=== PATIENT | male | born 1980 | race Caucasian/White ===

== ENCOUNTER 2017-01-10 12:47 | Emergency (ER) | payer SELFPAY ==
[~2017-01-10] VITALS: Ht 180.3 cm; Wt 107.5 kg
[2017-01-10 12:55] VITALS: BP 177/124
== END 2017-01-10 15:23 | disposition home or self-care (01) ==
LOC: ER 12:54
DX: G89.29 Other chronic pain (principal); M25.571 Pain in right ankle and joints of right foot; F17.210 Nicotine dependence, cigarettes, uncomplicated
CPT/HCPCS: 73610

== ENCOUNTER 2021-06-06 08:16 | Emergency (ER) | payer MEDICAID, OTHER ==
[~2021-06-06] VITALS: Ht 177.8 cm; Wt 94.8 kg
[2021-06-06 09:37] LABS: Basophils # (auto) 0.1 10 ^3/uL (0-0.2); Basophils % (auto) 1.2 % (0.0-2.0); Eosinophils # (auto) 0.5 10 ^3/uL (0-0.8); Eosinophils % (auto) 4.8 % (0.0-7.0); Hematocrit 46.2 % (41.0-53.0); Hemoglobin 16.2 g/dL (13.5-17.5); Lymphocytes # (auto) 2.9 10 ^3/uL (0.4-5.4); Lymphocytes % (auto) 29.9 % (10.0-50.0); Mean Corpuscular Hemoglobin 30.9 pg (28.0-32.0); Mean Corpuscular Hgb Conc. 35.1 g/dL (32.0-36.0); Monocytes # (auto) 0.7 10 ^3/uL (0-1.3); Monocytes % (auto) 7.5 % (0.0-12.0); Neutrophils # (auto) 5.4 10 ^3/uL (1.6-8.6); Neutrophils % (auto) 56.6 % (37.0-80.0); Nucleated Red Blood Cells % 0.1 %; Red Blood Cells 5.25 10^6/uL (4.5-5.90); White Blood Cell 9.6 10^3/uL (4.4-10.8)
[2021-06-06 11:05] LABS: Potassium 4.6 mmol/L (3.5-5.1)
[2021-06-06 11:12] LABS: Albumin 3.9 g/dL (3.4-5.0); BUN/Creatinine Ratio 11.2; Bilirubin, Total 0.5 mg/dL (0.2-1.0); Calcium 9.2 mg/dL (8.5-10.1); Total Protein 7.3 g/dL (6.4-8.2)
[2021-06-06 15:11] VITALS: BP 142/99
== END 2021-06-06 15:13 | disposition home or self-care (01) ==
LOC: ER 08:16
DX: F41.8 Other specified anxiety disorders (principal); R07.89 Other chest pain; I10 Essential (primary) hypertension; E11.9 Type 2 diabetes mellitus without complications; F17.210 Nicotine dependence, cigarettes, uncomplicated; Z20.822 Contact with and (suspected) exposure to COVID-19
CPT/HCPCS: 36415; 71045; 80053; 84484; 85025; 87426; 93005

== ENCOUNTER 2023-07-19 11:05 | Inpatient (IN) | payer MEDICAID ==
[~2023-07-19] VITALS: Ht 182.9 cm; Wt 95.6 kg
[2023-07-19 11:31] LABS: Basophils # (auto) 0 10 ^3/uL (0-0.2); Basophils % (auto) 0.5 % (0.0-2.0); Eosinophils # (auto) 0.7 10 ^3/uL (0-0.8); Eosinophils % (auto) 7.2 % (0.0-7.0); Hematocrit 50.7 % (41.0-53.0); Hemoglobin 17.2 g/dL (13.5-17.5); Lymphocytes % (auto) 32.1 % (10.0-50.0); Mean Corpuscular Hgb Conc. 33.8 g/dL (32.0-36.0); Mean Corpuscular Volume 88.6 fL (80.0-100.0); Monocytes # (auto) 0.5 10 ^3/uL (0-1.3); Monocytes % (auto) 4.9 % (0.0-12.0); Neutrophils # (auto) 5.2 10 ^3/uL (1.6-8.6); Neutrophils % (auto) 55.3 % (37.0-80.0); Nucleated Red Blood Cells % 0.1 %; Red Blood Cells 5.73 10^6/uL (4.5-5.90); Red Cell Distribution Width 13.5 % (11.8-14.3); White Blood Cell 9.3 10^3/uL (4.4-10.8)
[2023-07-19 11:49] LABS: Alanine Aminotransferase 32 U/L (7-40); Albumin 4.6 g/dL (3.2-4.8); Alkaline Phosphatase 119 U/L (46-116); Anion Gap 8 (5-15); Aspartate Aminotransferase 25 U/L (13-40); Bilirubin, Direct 0.2 mg/dL (<0.3); Bilirubin, Total 0.7 mg/dL (0.2-1.0); Calcium 9.6 mg/dL (8.5-10.1); Carbon Dioxide 28 mmol/L (20-30); Chloride 103 mmol/L (98-107); Glucose 287 mg/dL (74-106); Potassium 4.1 mmol/L (3.5-5.1); Sodium 139 mmol/L (136-145); Total Protein 6.9 g/dL (5.7-8.2)
[2023-07-19 11:54] LABS: BUN/Creatinine Ratio 5.3 (10.0-20.0); Blood Urea Nitrogen < 5 mg/dL (9-23)
[2023-07-19 12:06] LABS: Lipase 32 U/L (12-53)
[2023-07-19] MEDS: ASPirin-EC 325mg tab PO ONE (13:18)
[2023-07-19] MEDS ORDERED: ACETAMINOPHEN 325 MG TAB PO PRN (14:15)
[2023-07-19] MEDS: METOPROLOL TARTRATE 25 MG TAB PO SCH (14:15)
[2023-07-19] MEDS ORDERED: HYDROcodone-ACET 5/325MG TAB PO PRN (14:15)
[2023-07-19] MEDS ORDERED: hydrALAZINE HCL 20 MG/ML VL IV PRN (14:15)
[2023-07-19] MEDS ORDERED: MORPHINE SULFATE INJ 2 MG/ml SYRG IV PRN (14:15)
[2023-07-19] MEDS ORDERED: NITROGLYCERIN 0.4 MG SL TAB SL PRN (14:15)
[2023-07-19] MEDS ORDERED: ONDANSETRON HCL 4 MG/2 ML VIAL IV PRN (14:15)
[2023-07-19 14:46] LABS: Triglycerides 185 mg/dL (< 150)
[2023-07-19 14:47] LABS: LDL Cholesterol 148 mg/dL (< 100)
[2023-07-19 14:48] LABS: Cholesterol 201 mg/dL (< 200); HDL Cholesterol 35 mg/dL (40-59)
[2023-07-19] MEDS ORDERED: DEXTROSE (50%) 50ML SYRG IV PRN (16:30)
[2023-07-19 17:36] VITALS: O2SAT 95
[2023-07-19 18:05] VITALS: PULSE 80; RESP 20
[2023-07-19 18:11] VITALS: BP 128/90; PULSE 84; RESP 16; TEMP 98.5; O2SAT 96
[2023-07-19] MEDS ORDERED: METF-371 PO (18:40)
[2023-07-19] MEDS ORDERED: ATO40T PO (18:40)
[2023-07-19] MEDS: InsuLIN REG 1unit/0.01ml Soln (100units/ml) SC SCH ×2 (18:46→21:20)
[2023-07-19] MEDS: ACCU-CHEK COMFORT CURVE STRIP VI SCH (18:47)
[2023-07-19 20:00] VITALS: BP 145/80; PULSE 79; PULSE 80; RESP 20; RESP 22; TEMP 97.9; O2SAT 96
[2023-07-19] MEDS: ATORVASTATIN 20 MG TAB PO SCH (21:10)
[2023-07-19] MEDS: SODIUM CHLOR 0.9% PF (SALINE LOCK) 10ML VIAL/SYR IV SCH (21:14)
[2023-07-19 22:00] VITALS: BP 145/80; PULSE 79; RESP 22; TEMP 97.9; O2SAT 96
[2023-07-20] VITALS (7 sets, daily range): BP systolic 111–117; BP diastolic 64–77; PULSE 75–103; RESP 17–22; TEMP 97.7–98.4; O2SAT 92–96
[2023-07-20] MEDS: ENOXAPARIN SOD 40 MG/0.4 ML SYRINGE SC SCH (10:03)
[2023-07-20] MEDS: ASPirin 81 mg TAB PO SCH (10:04)
[2023-07-20] MEDS: NICOTINE 14 MG/24HR TOPICAL PATCH TD SCH (10:04)
[2023-07-20] MEDS: INFLUENZA QUAD 2023-2024 0.5 ML SYRG IM ONE (10:13)
[2023-07-21] VITALS (7 sets, daily range): BP systolic 116–130; BP diastolic 65–79; PULSE 65–84; RESP 15–18; TEMP 36.6; O2SAT 94–97
[2023-07-21] MEDS: InsuLIN REG 1unit/0.01ml Soln (100units/ml) SC SCH (11:24)
[2023-07-21] MEDS ORDERED: METO25TA36 PO ×2 (12:42→16:26)
[2023-07-21] MEDS ORDERED: HYDR-3682 PO (12:42)
[2023-07-21] MEDS ORDERED: QUET200T4 PO ×2 (12:42→16:26)
[2023-07-21] MEDS ORDERED: PROP1TAB51 PO (12:42)
[2023-07-21] MEDS ORDERED: ALBU108A5 IN ×2 (12:42→16:29)
[2023-07-21] MEDS ORDERED: MECL1TAB32 PO (12:42)
[2023-07-21] MEDS ORDERED: METF-370 PO (12:42)
[2023-07-21] MEDS ORDERED: OLAN20TA PO (12:42)
[2023-07-21] MEDS ORDERED: BENZ1TAB6 PO (12:42)
[2023-07-21] MEDS ORDERED: CITA-73 PO ×2 (12:42→16:26)
[2023-07-21] MEDS ORDERED: LORA-622 PO (12:42)
[2023-07-21] MEDS ORDERED: NAP500T PO (12:42)
[2023-07-21] MEDS ORDERED: DIVA500T13 PO ×2 (12:42→16:26)
[2023-07-21] MEDS ORDERED: ATOR10TA52 PO (12:42)
[2023-07-21] MEDS ORDERED: ATOR80TA PO (14:56)
[2023-07-21] MEDS ORDERED: METF-371 PO (16:26)
[2023-07-21] MEDS ORDERED: ATO40T PO (16:27)
[2023-07-21] MEDS ORDERED: ATORVASTATIN 20 MG TAB PO SCH (22:00)
== END 2023-07-21 18:07 | disposition home or self-care (01) | DRG 199 ==
LOC: EDBD 11:05 → ER 11:05 → TELE 14:16 → TELE-WESTW 17:42
PROVIDERS: ADMIT Internal Medicine; ATTEND Internal Medicine Geriatric Medicine
DX: I16.0 Hypertensive urgency (principal); E11.65 Type 2 diabetes mellitus with hyperglycemia; I25.5 Ischemic cardiomyopathy; E78.00 Pure hypercholesterolemia, unspecified; F17.210 Nicotine dependence, cigarettes, uncomplicated; J44.9 Chronic obstructive pulmonary disease, unspecified; K21.9 Gastro-esophageal reflux disease without esophagitis; R62.50 Unspecified lack of expected normal physiological development in childhood; Z91.148 Patient's other noncompliance with medication regimen for other reason; E66.9 Obesity, unspecified; Z68.28 Body mass index [BMI] 28.0-28.9, adult; Z79.84 Long term (current) use of oral hypoglycemic drugs; I25.2 Old myocardial infarction; Z79.899 Other long term (current) drug therapy; Z82.49 Family history of ischemic heart disease and other diseases of the circulatory system; Z83.3 Family history of diabetes mellitus
CPT/HCPCS: 36415; 71045; 80048; 80061; 80076; 82962; 83036; 83690; 84484; 85025; 85379; 90686; 93005; 93306; G0378; J1815